=== PATIENT | female | born 1995 | race Caucasian/White ===

== ENCOUNTER 2019-08-03 13:01 | Inpatient (IN) | payer OTHER ==
[~2019-08-03] VITALS: Ht 162.6 cm; Wt 114.0 kg
[2019-08-03 13:01] VITALS: BP 145/77
--- NOTE | 2019-08-03 13:08 | NUR ---
DR. GOODEN TO TRIAGE TO EVALUATE PATIENT
[2019-08-03] MEDS ORDERED: LEVO-T25 MCG PO (14:45)
[2019-08-03] MEDS ORDERED: ESCITALOPRAM OX10 MG PO (14:45)
[2019-08-03 14:48] LABS: ABSOLUTE NEUTROPHILS 6.3 thou/uL (1.4-8.2); BASOPHILS 0.7 % (0.0-2.0); EOSINOPHILS 6.3 % (0.0-3.0); HEMATOCRIT 42.2 % (37.0-47.0); HEMOGLOBIN 14.1 gm/dL (12.0-15.0); LYMPHOCYTES 24.9 % (24.0-44.0); MCH 28.4 pg (26.0-34.0); MCHC 33.3 g/dL (28.0-37.0); MCV 85.2 fL (80.0-100.0); MONOCYTES 3.5 % (1.0-8.0); PLATELET COUNT 306 thou/uL (150-400); POLYS 64.6 % (36.0-66.0); RBC 4.95 mil/uL (4.20-5.00); RDW 14.7 % (10.5-14.5); WBC 9.7 thou/uL (4.0-11.0)
[2019-08-03 15:03] LABS: APTT 25.1 Seconds (24.5-32.8); PROTIME 10.4 Seconds (9.3-11.4)
[2019-08-03 15:05] LABS: ANION GAP 10 mmol/L (7-16); BUN 10 mg/dL (7-18); CALCIUM 9.6 mg/dL (8.5-10.1); CHLORIDE 102 mmol/L (98-107); CO2 25 mmol/L (21-32); CREATININE 0.8 mg/dL (0.6-1.0); GLUCOSE 80 mg/dL (74-106); SODIUM 137 mmol/L (136-145)
[2019-08-03 15:07] LABS: POTASSIUM 4.3 mmol/L (3.5-5.1)
[2019-08-03 15:10] LABS: ALBUMIN 3.6 g/dL (3.4-5.0); SGOT 21 U/L (15-37); SGPT 16 U/L (30-65); TOTAL BILIRUBIN 0.3 mg/dL (<0.1-1.0); TOTAL PROTEIN 8.2 g/dL (6.4-8.2); TROPONIN-I <0.06 ng/mL (<0.06)
--- NOTE | 2019-08-03 15:36 | NUR ---
SHOPPING CENTRE MANAGER TO SEE PATIENT. PT AND FAMILY UNDERSTAND NEED FOR ADMISSION AND FURTHER TESTING. I WILL CONTINUE TO FOLLOW PATIENT THROUGHOUT STAY
--- NOTE | 2019-08-03 15:38 | NUR ---
MRI SCREENING SHEET COMPLETED AND SIGNED BY PATIENT. PT PREPARED FOR MRI TESTING.
[2019-08-03 16:07] LABS: AMP/METHAMP Negative (Negative); BARBITURATES Negative (Negative); BENZODIAZEPINES Negative (Negative); COCAINE Negative (Negative); METHADONE Negative (Negative); OPIATES Negative (Negative); PCP Negative (Negative)
--- NOTE | 2019-08-03 17:28 | EKG ---
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
[2019-08-03 18:22] VITALS: BP 148/82
[2019-08-03 18:33] VITALS: BP 143/95
[2019-08-03 18:48] VITALS: BP 144/101
--- NOTE | 2019-08-03 19:22 | NUR ---
PT ARRIVED FROM ED. Demian MURPHY nurse received report. Pt alert and oriented, steady. Vitals signs taken. Pt oriented to room. PT denies any needs, in room. Call light in reach. Handoff given to MAGAN plascencia
[2019-08-04 00:11] VITALS: BP 145/93; BP 1450/93
--- NOTE | 2019-08-04 01:56 | NUR ---
PATIENT IS A NEW ADMISSION TO THE UNIT THIS SHIFT ARRIVING SHORTLY BEFORE SHIFT CHANGE. SHE IS FULLY ALERT AND ORIENTED AND WAS ABLE TO PARTICIPATE FULLY IN ADMISSION PROCESS. CHIEF COMPLAINT WAS HEADACHE AND SLIGHT NAUSEA WHICH NURSE HAS TREATED EFFECTIVELY USING MEDICATIONS AND NON PHARMACOLOGICAL INTERVENTIONS. SHE WAS ABLE TO AMBULATE TO BED WITH ASSISTANCE INCIDENT FREE. SHE IS BEING CONSIDERED A HIGH FALL RISK PRIMARILY DUE TO ADMITTING DIAGNOSIS. NIH AT ZERO AND HAS BEEN ASSESSED PER PROVIDER ORDER. NURSE TO COMPLETE ADMISSION AND INITIATE PLAN OF CARE.
[2019-08-04 03:59] VITALS: BP 128/79
[2019-08-04 04:22] LABS: CALCIUM 9.2 mg/dL (8.5-10.1); CREATININE 0.8 mg/dL (0.6-1.0); POTASSIUM 4.3 mmol/L (3.5-5.1)
[2019-08-04 04:35] LABS: HEMATOCRIT 38.4 % (37.0-47.0); HEMOGLOBIN 12.8 gm/dL (12.0-15.0); MCH 28.5 pg (26.0-34.0); MCHC 33.4 g/dL (28.0-37.0); MCV 85.4 fL (80.0-100.0); RBC 4.49 mil/uL (4.20-5.00); RDW 14.7 % (10.5-14.5); WBC 9.8 thou/uL (4.0-11.0)
[2019-08-04 04:45] LABS: CHOLESTEROL 188 mg/dL (<200); HDL CHOLESTEROL 55 mg/dL (>40); LDL CHOLESTEROL 104 mg/dL (<100); TC:HDL 3.4 Ratio (Not establshd); TRIGLYCERIDE 149 mg/dL (<150); VLDL 30 mg/dL (<40)
[2019-08-04 04:46] LABS: SERUM ASSESSMENT Clear
[2019-08-04 07:20] VITALS: BP 159/88
--- NOTE | 2019-08-04 07:40 | NUR ---
chart review. cm consulted for dcp. pt up in bed, a & o x 4, pleasant and able to make her needs know. " yep stroke at 24"/pt. she reported "only live her for 6 month, live in apartment with . 15 steps up to 2nd floor apartment. independent. no dme. 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 i can move and don't think i will need anything. see dr in [facility], not sure name only see 1 time. i just moved here 6mo ago. thank you"/ti. no anticipated needs. will cont following as needed for dc needs.
--- NOTE | 2019-08-04 11:59 | 2DMMODE ---
[facility] [address] [place] [address] 2 D/M-MODE ECHOCARDIOGRAM Name: ZION WAITE Room #: 349-I ADM IN [facility].#: [id number] Admission: 08/03/19 Attend Phys: Timur Kirby MD Discharge: Date of : [birth year] Report #: [id number] THIS REPORT FOR: //name// APPROVED REPORT Study performed: 08/04/2019 10:59:45 EXAM: Comprehensive 2D, Doppler, and color-flow Echocardiogram Patient Location: Bedside Room #: 349 Status: routine BSA: 2.16 HR: 99 bpm BP: 159/88 mmHg Rhythm: Tachycardia Other Information Study Quality: Adequate Indications CVA/TIA Hypertension/HDD Echo Enhancing Agent Indication: Rule out Shunt Agent(s) / Amount(s) Used: Agitated Saline 7 cc 2D Dimensions RVDd: 33.44 mm IVSd: 8.68 (7-11mm) LVOT Diam: 21.45 (18-24mm) LVDd: 39.52 mm PWd: 8.74 (7-11mm) Ascending Ao: 24.47 (22-36mm) LVDs: 25.30 (25-40mm) Aortic Root: 26.31 mm IVC: 12.00 mm Volumes Left Atrial Volume (Systole) Single Plane 4CH: 26.94 mL Single Plane 2CH: 45.14 mL LA ESV Index: 18.00 mL/m2 Aortic Valve AoV Peak Agustín.: 1.23 m/s AO Peak Gr.: 6.05 mmHg LVOT Max P.51 mmHg LVOT Max V: 1.06 m/s CYNDI Vmax: 3.12 cm2 [facility] [address] [email or web address] [address] 2 D/M-MODE ECHOCARDIOGRAM Name: ZION WAITE Room #: 349-I [facility] IN [facility]#: [id number] Admission: 08/03/19 Attend Phys: Timur Kirby MD Discharge: Date of : [birth year] Report #: [id number] Mitral Valve E/A Ratio: 1.1 MV Decel. Time: 192.86 ms MV E Max Agustín.: 1.68 m/s MV A Agustín.: 1.55 m/s MV PHT: 55.93 ms IVRT: 65.74 ms Pulmonary Valve PV Peak Agustín.: 1.17 m/s PV Peak Gr.: 5.47 mmHg Tricuspid Valve TR Peak Agustín.: 2.51 m/s TR Peak Gr.: 25.26 mmHg PA Pressure: 30.00 mmHg Left Ventricle The left ventricle is normal size. There is normal LV segmental wall motion. There is normal left ventricular wall thickness. Left ventricular systolic function is normal. The left ventricular ejection fraction is within the normal range. LVEF is 55-60%. Left ventricular filling pattern is normal for age. Right Ventricle The right ventricle is normal size. The right ventricular systolic function is normal. Atria The left atrium size is normal. Interatrial septum is intact without evidence of ASD or PFO. The right atrium size is normal. Aortic Valve The aortic valve is normal in structure. No aortic regurgitation is present. There is no aortic valvular stenosis. Mitral Valve The mitral valve is normal in structure. Mild mitral regurgitation. No evidence of mitral valve stenosis. Tricuspid Valve The tricuspid valve is normal in structure. There is trace tricuspid regurgitation. Pulmonic Valve The pulmonary valve is normal in structure. There is no pulmonic [facility] [address] [place] [address] 2 D/M-MODE ECHOCARDIOGRAM Name: ZION WAITE Room #: 349-I ADM IN [facility].#: [id number] Admission: 08/03/19 Attend Phys: Timur Kirby MD Discharge: Date of : [birth year] Report #: [id number] valvular regurgitation. Great Vessels The aortic root is normal in size. IVC is normal in size and collapses >50% with inspiration. Pericardium There is no pericardial effusion. <Conclusion> The left ventricle is normal size. There is normal left ventricular wall thickness. Left ventricular systolic function is normal. The right ventricle is normal size. The left atrium size is normal. Interatrial septum is intact without evidence of ASD or PFO. The aortic valve is normal in structure. Mild mitral regurgitation. There is trace tricuspid regurgitation. <ELECTRONICALLY SIGNED> By: Jet Woodward MD 08/04/19 1158 [id number] [id number] Jet Woodward MD /INF
[2019-08-04 12:58] LABS: FOLIC ACID 15.6 ng/mL (8.6-58.9); TSH 5.372 uIU/mL (0.358-3.740)
[2019-08-04] MEDS ORDERED: VERAPAMIL HCL180 M4 PO (14:19)
[2019-08-04] MEDS ORDERED: ASA5UEC PO (14:19)
[2019-08-04] MEDS ORDERED: XARELTO15 MG PO (14:21)
[2019-08-04] MEDS ORDERED: XARELTO20 MG PO (14:21)
[2019-08-04 15:57] VITALS: BP 159/88
== END 2019-08-04 16:47 | disposition home or self-care (01) | DRG 65 ==
LOC: ER 13:01 → EROBS 17:37 → 3W 17:37
PROVIDERS: Emergency Medicine; Psychiatry & Neurology Neurology; ADMIT Hospitalist
DX: I63.9 Cerebral infarction, unspecified (principal); I82.619 Acute embolism and thrombosis of superficial veins of unspecified upper extremity; D68.59 Other primary thrombophilia; G43.909 Migraine, unspecified, not intractable, without status migrainosus; E03.9 Hypothyroidism, unspecified; R29.810 Facial weakness; Z88.0 Allergy status to penicillin; Z79.899 Other long term (current) drug therapy
CPT/HCPCS: 10879